=== PATIENT | female | born 1950 | race Caucasian/White ===

== ENCOUNTER 2018-12-03 13:38 | Day surgery (SDC) | payer MEDICARE, OTHER ==
[~2018-12-03] VITALS: Ht 160 cm; Wt 94.0 kg
[~2018-12-03 13:38] MED LIST: ANASTROZOLE5 GM PO; ATOR40TA PO; Diovan Hct 1601 EACH PO; LEVSOD125 PO; LEVSOD137; LOSA50 PO; MELO7.5; METF500 PO; OMEP20ER PO; OXYACE5T PO; VITAMIN D5000 UNIT PO
--- NOTE | 2018-12-03 14:09 | NUR ---
Ambulatory in Day SurgeryLungs clear T/O to Auscultation. History, Chart, Medications and Allergies reviewed before start of procedure.Patient confirms NPO status and agrees with scheduled surgery.
--- NOTE | 2018-12-03 15:23 | NUR ---
UP TO BATHROOM TO VOID.
--- NOTE | 2018-12-03 21:17 | NUR ---
pt transferred to unit on own bed, post op vs commenced and stable, pt drowsy, no n/v, rates pain at 4/10, family in room, PAS/cryotherapy on
--- NOTE | 2018-12-03 21:30 | NUR ---
per pharmacy, verified one time dose of coumadin with dr sneed, net developer contract orthopedist, given per mar
[2018-12-03] MEDS ORDERED: ANASTROZOLE5 GM (22:24)
[2018-12-04 04:36] LABS: BASOPHILS ABSOLUTE AUTO 0.01 K/mm3 (0.00-0.23); BASOPHILS PERCENT AUTO 0 % (0-2); EOSINOPHILS PERCENT AUTO 0 % (0-6); Hematocrit 32.5 % (33.0-51.0); Hemoglobin 10.4 g/dL (11.5-16.0); IMMATURE GRAN ABSOLUTE AUTO 0.06 K/mm3 (0.00-0.10); IMMATURE GRAN PERCENT AUTO 0 % (0-1); LYMPHOCYTES ABSOLUTE AUTO 0.65 K/mm3 (0.84-5.20); LYMPHOCYTES PERCENT AUTO 4 % (21-46); MONOCYTES ABSOLUTE AUTO 0.98 K/mm3 (0.16-1.47); MONOCYTES PERCENT AUTO 6 % (4-13); Mean Corpuscular HGB 28.7 pg (26.0-34.0); Mean Corpuscular Volume 90 fL (80-100); Mean Platelet Volume 10.4 fL (9.1-12.4); NEUTROPHILS ABSOLUTE AUTO 14.24 K/mm3 (1.96-9.15); NEUTROPHILS PERCENT AUTO 89 % (41-73); Platelet Count 235 K/mm3 (150-400); RDW Coefficient Variation 14.5 % (11.7-14.2); RDW Standard Deviation 47.7 fL (35.1-46.3); Red Blood Cell Count 3.62 M/mm3 (3.80-5.20); White Blood Cell Count 15.94 K/mm3 (4.00-11.30)
[2018-12-04 04:45] LABS: International Normalized Ratio 1.02; Prothrombin Time Results 10.8 Sec (9.7-11.5)
[2018-12-04 04:49] LABS: Anion Gap 10 mmol/L (6-16); Blood Urea Nitrogen 15 mg/dL (8-24); CO2, Blood 22 mmol/L (21-32); Calcium, Blood 8.7 mg/dL (8.5-10.1); Chloride, Blood 104 mmol/L (98-108); Creatinine, Blood 0.79 mg/dL (0.40-1.00); Glomerular Filtration Rate >60 (60-); Glucose, Blood 125 mg/dL (70-99); Magnesium, Blood 1.5 mg/dL (1.6-2.4); Potassium, Blood 4.4 mmol/L (3.5-5.5); Sodium, Blood 136 mmol/L (136-145)
--- NOTE | 2018-12-04 05:33 | NUR ---
SHIFT SUMMARY: PT POD #1 FOR LEFT TOTAL KNEE. A&O X4. VS WNL. TEN WRAP CDI WITH POLAR PACK IN PLACE. EXTREMITY ELEVATED ON PILLOWS. CAP REFILL WNL, WIGGLES TOES. PAIN MANAGED WITH 10MG OXY AND SCHEDULED TYLENOL. GIVEN 0.5MG DILAUDID ONCE FOR BREAKTHROUGH PAIN. PT OUT OF BED WITH MINIMAL ASSIST TO BATHROOM USING FWW. VOIDING WELL. MIKE PO. DENIES N/V. SALINE LOCKED. NO CONCERNS AT THIS TIME.
[2018-12-04] MEDS ORDERED: WARF4 PO (16:34)
[2018-12-04] MEDS ORDERED: OXYC5 PO (16:35)
--- NOTE | 2018-12-04 17:17 | NUR ---
DISCHARGE: PT EATING AND DRINKING WELL. PT REPORTS PAIN TOLERABLE ON PO PAIN MEDICATION. PT BEEN SEEN BY DR Salazar AND CLEARED BY THERAPY TO GO HOME. PT REPORTS HAVING WALKER AT HOME. PT GIVEN DRESSING SUPPLIES, SCRIPTS. PT REPORTS UNDERSTANDING OF DISCHARGE INSTRUCTIONS. ORTHO COORDINATOR ASSISTED WITH PT'S DISCHARGE. PT SENT WITH POLAR PAC AND FAMILY REPORTS UNDERSTANDING. PT VOIDING AND PASSING GAS. IV OUT WNL, NO OTHER IV'S IN PLACE.
--- NOTE | 2018-12-06 07:30 | NUR ---
12/06/18 0730 Parul Villarreal VERIFICATIONS: EDIT CHART.
== END 2018-12-04 17:44 | disposition home or self-care (01) ==
LOC: ORSCMMR 13:38 → ORD 15:00 → ORSCMMR 15:15 → SURS 20:52 → ORSCMMR 20:52 → SURS 20:57 → ORSCMMR 12-04 17:44 → SURS 12-04 17:44
PROVIDERS: Orthopaedic Surgery
PROC: 0SRD0J9 Replacement of Left Knee Joint with Synthetic Substitute, Cemented, Open Approach (ICD-10-PCS; principal; 2018-12-03 15:15)
DX: M17.12 Unilateral primary osteoarthritis, left knee (principal); M21.062 Valgus deformity, not elsewhere classified, left knee; I10 Essential (primary) hypertension; E03.9 Hypothyroidism, unspecified; E78.5 Hyperlipidemia, unspecified; K21.9 Gastro-esophageal reflux disease without esophagitis; E11.9 Type 2 diabetes mellitus without complications; I35.0 Nonrheumatic aortic (valve) stenosis; E66.9 Obesity, unspecified; Z68.37 Body mass index [BMI] 37.0-37.9, adult; Z88.6 Allergy status to analgesic agent; Z79.811 Long term (current) use of aromatase inhibitors; Z79.84 Long term (current) use of oral hypoglycemic drugs; Z79.899 Other long term (current) drug therapy; Z85.3 Personal history of malignant neoplasm of breast
CPT/HCPCS: 36415; 73560-LT; 80048; 82947; 83735; 85025; 85610; 86850; 86900; 86901; 88300; 94762; 97110; 97116; 97161; 97530; C1713; C1776; J0171; J0690; J0735; J1100; J1170; J2250; J2405; J2704; J2765; J2795; J3010; J3370; J7120

== ENCOUNTER 2023-12-11 18:21 | Emergency (ER) | payer OTHER, MEDICARE ==
[~2023-12-11] VITALS: Ht 162.6 cm; Wt 104.3 kg
[~2023-12-11 18:21] MED LIST changes: +ANASTROZOLE5 GM; +HYDROCHLOROTH12.5 MG PO; +OXYC5 PO; +WARF4 PO
[2023-12-11 18:47] VITALS: BP 182/73
== END 2023-12-11 20:18 | disposition home or self-care (01) ==
LOC: ER 18:21
DX: S01.111A Laceration without foreign body of right eyelid and periocular area, initial encounter (principal); W01.190A Fall on same level from slipping, tripping and stumbling with subsequent striking against furniture, initial encounter; Z79.84 Long term (current) use of oral hypoglycemic drugs; Z79.899 Other long term (current) drug therapy; Z88.6 Allergy status to analgesic agent
CPT/HCPCS: 12011; 99282-25

== ENCOUNTER → 2024-12-23 | Outpatient (CLI) | payer MEDICARE, OTHER ==
[2024-12-23 21:09] LABS: Creatinine, Urine Random 83.20 mg/dL (27.00-270.00)
[2024-12-23 21:14] LABS: Microalb/Creat Ratio UR, Rand Unable to Calculate mg/g (0.000-30.000); Microalbumin, Random Urine <5.000 mg/L (0.000-20.000)
== END | disposition home or self-care (01) ==
LOC: LAB 09:30 → LAB SHORT 09:30
PROVIDERS: Internal Medicine
DX: R73.03 Prediabetes (principal); R92.0 Mammographic microcalcification found on diagnostic imaging of breast
CPT/HCPCS: 82043; 82570

== ENCOUNTER 2025-01-25 15:42 | Emergency (ER) | payer MEDICARE, OTHER ==
[~2025-01-25] VITALS: Ht 162.6 cm; Wt 102.1 kg
[2025-01-25 16:36] LABS: BASOPHILS ABSOLUTE AUTO 0.04 K/mm3 (0.00-0.23); BASOPHILS PERCENT AUTO 1 % (0-2); EOSINOPHILS ABSOLUTE AUTO 0.17 K/mm3 (0.00-0.68); EOSINOPHILS PERCENT AUTO 2 % (0-6); Hematocrit 42.3 % (33.0-51.0); Hemoglobin 13.7 g/dL (11.5-16.0); IMMATURE GRAN ABSOLUTE AUTO 0.01 K/mm3 (0.00-0.10); IMMATURE GRAN PERCENT AUTO 0 % (0-1); LYMPHOCYTES ABSOLUTE AUTO 1.47 K/mm3 (0.84-5.20); LYMPHOCYTES PERCENT AUTO 21 % (21-46); MONOCYTES ABSOLUTE AUTO 0.60 K/mm3 (0.16-1.47); MONOCYTES PERCENT AUTO 9 % (4-13); Mean Corpuscular HGB Conc 32.4 g/dL (31.5-36.5); Mean Corpuscular Volume 89 fL (80-100); NEUTROPHILS ABSOLUTE AUTO 4.69 K/mm3 (1.96-9.15); NEUTROPHILS PERCENT AUTO 67 % (41-73); NRBC ABSOLUTE 0.00 K/mm3 (0.00-0.02); NRBC Auto 0.0 /100 WBC (0.0-0.2); Platelet Count 278 K/mm3 (150-400); RDW Coefficient Variation 13.3 % (11.7-14.2); RDW Standard Deviation 43.7 fL (35.1-46.3)
[2025-01-25] MEDS ORDERED: EUTHYROX125 MC1 PO (16:39)
[2025-01-25] MEDS ORDERED: METOPROLOL SUCC25 MG PO (16:39)
[2025-01-25] MEDS ORDERED: OXYCODONE-ACET1 EAC3 (16:39)
[2025-01-25 17:03] LABS: Alanine Aminotransfer (ALT/SGP 31.0 U/L (12-78); Albumin, Blood 3.6 g/dL (3.4-5.0); Albumin/Globulin Ratio 0.9 (0.8-1.8); Anion Gap 4.0 mmol/L (3-11); Aspartate Aminotrans (AST/SGOT 24.0 U/L (12-37); Bilirubin, Total 0.4 mg/dL (0.1-1.0); Blood Urea Nitrogen 13.0 mg/dL (8-24); CO2, Blood 30.0 mmol/L (21-32); Calcium, Blood 9.8 mg/dL (8.5-10.1); Chloride, Blood 110.0 mmol/L (98-108); Creatinine, Blood 0.75 mg/dL (0.40-1.00); Globulin, Blood 4.0 g/dL (2.2-4.0); Glucose, Blood 125.0 mg/dL (70-99); Potassium, Blood 3.8 mmol/L (3.5-5.5); Sodium, Blood 140.0 mmol/L (136-145); Total Protein, Blood 7.6 g/dL (6.4-8.2)
[2025-01-25 17:15] VITALS: BP 158/70
[2025-01-25 17:28] LABS: Thyroid Stimulating Hormone 0.567 uIU/mL (0.360-4.800)
== END 2025-01-25 17:21 | disposition home or self-care (01) ==
LOC: ER 15:42
PROVIDERS: Student in an Organized Health Care Education/Training Program
DX: I48.0 Paroxysmal atrial fibrillation (principal); Z88.6 Allergy status to analgesic agent; Z79.890 Hormone replacement therapy; Z79.899 Other long term (current) drug therapy; Z79.84 Long term (current) use of oral hypoglycemic drugs
CPT/HCPCS: 71045; 80053; 83880; 84439; 84443; 84484; 85025; 93005; 93010; 99285-25

== ENCOUNTER 2025-02-21 21:31 | Emergency (ER) | payer MEDICARE, OTHER ==
[~2025-02-21] VITALS: Ht 162.6 cm; Wt 102.1 kg
[~2025-02-21 21:31] MED LIST changes: +EUTHYROX125 MC1 PO; +METOPROLOL SUCC25 MG PO; +OXYCODONE-ACET1 EAC3
[2025-02-21 21:35] VITALS: BP 151/60
[2025-02-21 21:57] LABS: BASOPHILS ABSOLUTE AUTO 0.04 K/mm3 (0.00-0.23); BASOPHILS PERCENT AUTO 1 % (0-2); EOSINOPHILS ABSOLUTE AUTO 0.16 K/mm3 (0.00-0.68); EOSINOPHILS PERCENT AUTO 2 % (0-6); Hematocrit 39.1 % (33.0-51.0); Hemoglobin 12.7 g/dL (11.5-16.0); IMMATURE GRAN ABSOLUTE AUTO 0.02 K/mm3 (0.00-0.10); IMMATURE GRAN PERCENT AUTO 0 % (0-1); LYMPHOCYTES ABSOLUTE AUTO 2.08 K/mm3 (0.84-5.20); LYMPHOCYTES PERCENT AUTO 31 % (21-46); MONOCYTES ABSOLUTE AUTO 0.65 K/mm3 (0.16-1.47); MONOCYTES PERCENT AUTO 10 % (4-13); Mean Corpuscular HGB Conc 32.5 g/dL (31.5-36.5); Mean Corpuscular Volume 89 fL (80-100); NEUTROPHILS ABSOLUTE AUTO 3.80 K/mm3 (1.96-9.15); NEUTROPHILS PERCENT AUTO 56 % (41-73); NRBC ABSOLUTE 0.00 K/mm3 (0.00-0.02); NRBC Auto 0.0 /100 WBC (0.0-0.2); Platelet Count 266 K/mm3 (150-400); RDW Coefficient Variation 13.5 % (11.7-14.2); RDW Standard Deviation 44.1 fL (35.1-46.3)
[2025-02-21 22:13] LABS: D-Dimer, Quantitative <0.19 mg/L FEU (0.00-0.52); Prothrombin Time Results 13.3 Sec (9.7-11.5)
[2025-02-21 22:18] LABS: Alanine Aminotransfer (ALT/SGP 30.0 U/L (12-78); Albumin, Blood 3.5 g/dL (3.4-5.0); Albumin/Globulin Ratio 1.0 (0.8-1.8); Anion Gap 6.0 mmol/L (3-11); Aspartate Aminotrans (AST/SGOT 20.0 U/L (12-37); Bilirubin, Total 0.4 mg/dL (0.1-1.0); Blood Urea Nitrogen 18.0 mg/dL (8-24); CO2, Blood 30.0 mmol/L (21-32); Calcium, Blood 8.9 mg/dL (8.5-10.1); Chloride, Blood 105.0 mmol/L (98-108); Creatinine, Blood 0.91 mg/dL (0.40-1.00); Globulin, Blood 3.5 g/dL (2.2-4.0); Glucose, Blood 98.0 mg/dL (70-99); Potassium, Blood 4.1 mmol/L (3.5-5.5); Sodium, Blood 137.0 mmol/L (136-145); Total Protein, Blood 7.0 g/dL (6.4-8.2)
== END 2025-02-22 02:27 | disposition left against medical advice (07) ==
LOC: ER 21:31
PROVIDERS: Student in an Organized Health Care Education/Training Program
DX: Z53.21 Procedure and treatment not carried out due to patient leaving prior to being seen by health care provider (principal)
CPT/HCPCS: 71045; 80053; 84484; 85025; 85379; 85610; 85730; 93005; 93010